=== PATIENT | male | born 1990 | race American Indian/Alaskan Native ===

== ENCOUNTER 2018-11-15 12:33 | Emergency (ER) | payer OTHER ==
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
[2018-11-15] MEDS ORDERED: FLEXERIL PO ONE (13:19)
[2018-11-15] MEDS ORDERED: IBUPROFEN PO ONE (13:19)
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
[2018-11-15] MEDS ORDERED: DELTASONE PO NR (14:00)
== END 2018-11-15 14:02 | disposition home or self-care (01) ==
LOC: ED 12:33
DX: S60.211A Contusion of right wrist, initial encounter (principal); M79.10 Myalgia, unspecified site; F17.200 Nicotine dependence, unspecified, uncomplicated; Z79.899 Other long term (current) drug therapy; V49.88XA Car occupant (driver) (passenger) injured in other specified transport accidents, initial encounter; Y93.89 Activity, other specified; Y92.488 Other paved roadways as the place of occurrence of the external cause; Y99.8 Other external cause status
CPT/HCPCS: 70450; 71046; 99284